=== PATIENT | female | born 1985 | race Caucasian/White ===

== ENCOUNTER 2016-12-11 12:15 | Emergency (ER) | payer OTHER ==
[~2016-12-11] VITALS: Ht 180.3 cm; Wt 76.1 kg
[~2016-12-11 12:15] MED LIST: ADVAIR 250/501 DISK IH; ATARAX,VISTARIL25 MG PO; AZITHROMYCIN250 MG PO; BENADRYL ALLERG25 MG PO; BENADRYL50 MG PO; BENZONATATE200 MG PO; BUSPAR10 MG PO; BUSPAR5 MG PO; CLINDAMYCIN HC300 MG PO; CYCLOBENZAPRINE 10 M; CYCLOBENZAPRINE10 MG PO; DIAZEPAM5 MG PO; EFFEXOR75 MG PO; FLUOXETINE HCL10 MG PO; Flexeril PO; HYDROXYZINE HCL10 MG PO; HYDROXYZINE HCL25 MG PO; MIRENA52 MG IY; NATALCARE RX1 TABLET PO; NORCO 5/3251 TABLET PO; OXYCODONE HCL10 MG PO; PERCOCET 5/31 TABLET PO; PREDNISONE20 MG PO; PROVENTIL,2.5 MG/3 M IH; PROZAC20 MG PO; Percocet 5/325,Endoc PO; Proventil,Ventolin H IH; SKYLA1 EACH IY; SYMBICORT60 INHALAT IH; Symbicort 80-4.5 mcg IH; TRAMADOL HCL50 MG PO; TRAZODONE HCL50 MG PO; VALIUM5 MG PO; ZOFRAN ODT4 MG PO; ZYVOX600 MG PO
[2016-12-11 13:06] LABS: HEMATOCRIT 35.1 % (36.0-46.0); MCH 29.8 PG (29.0-34.0); MCHC 34.5 G/DL (30.0-36.0); MCV 86.5 FL (83-99); MEAN PLAT.VOLUME 10.3 uM^3 (9.5-12.4); PLATELET COUNT 167 K/uL (156-360); RBC DIS.WIDTH-CV 12.8 % (11.8-14.6); RBC DIS.WIDTH-SD 39.8 % (39-53); RED BLOOD COUNT 4.06 M/uL (3.80-5.20); WHITE BLOOD COUNT 9.2 K/uL (4.1-10.2)
[2016-12-11 13:17] LABS: CHLORIDE 108 mEq/L (99-109); POTASSIUM 3.6 mEq/L (3.7-5.4); SODIUM 138 mEq/L (136-147)
[2016-12-11 13:18] LABS: GLUCOSE 116 mg/dL (70-99)
[2016-12-11 13:20] LABS: ANION GAP 11 MEQ/L (2-14)
[2016-12-11 13:22] LABS: GFR ESTIMATE (CALCULATED) > 59 mL/min/
[2016-12-11 13:23] LABS: UREA NITROGEN (BUN) 10 mg/dL (9-23)
[2016-12-11] MEDS ORDERED: PREDNISONE20 MG PO (14:42)
[2016-12-11] MEDS ORDERED: VENTOLIN HFA18 GM IH (14:42)
[2016-12-11 15:01] VITALS: BP 108/61
== END 2016-12-11 15:07 | disposition left against medical advice (07) ==
LOC: EME 12:15
PROVIDERS: Emergency Medicine
DX: O99.513 Diseases of the respiratory system complicating pregnancy, third trimester (principal); J45.909 Unspecified asthma, uncomplicated; O26.893 Other specified pregnancy related conditions, third trimester; Z3A.32 32 weeks gestation of pregnancy; K21.9 Gastro-esophageal reflux disease without esophagitis; Z87.442 Personal history of urinary calculi; Z87.891 Personal history of nicotine dependence; Z79.82 Long term (current) use of aspirin
CPT/HCPCS: 80048; 85027; 93005; 94640; 99281; 99285; J7030

== ENCOUNTER 2016-12-28 11:01 | Outpatient (CLI) | payer OTHER ==
[~2016-12-28] VITALS: Ht 165.1 cm; Wt 78.6 kg
[~2016-12-28 11:01] MED LIST changes: +VENTOLIN HFA18 GM IH
[2016-12-28 11:23] VITALS: BP 110/68
[2016-12-28] MEDS ORDERED: PULMICORT FLE180 MCG IH (11:32)
[2016-12-28] MEDS ORDERED: ASPIR 8181 M1 PO (11:35)
[2016-12-28] MEDS ORDERED: PRENA1 CHEW TA1.4 MG PO (11:35)
[2016-12-28] MEDS ORDERED: NYSTATIN15 GM TP (11:36)
[2016-12-28 13:03] LABS: ADD MIUA? YES; BILIRUBIN NEGATIVE; BLOOD LARGE; COLOR YELLOW ((YELLOW)); GLUCOSE (STRIP) NEGATIVE; KETONES NEGATIVE; LEUKOCYTES NEGATIVE; NITRITE NEGATIVE; PROTEIN (STRIP) NEGATIVE; SPECIFIC GRAVITY 1.005 (1.000-1.030); UROBILINOGEN 0.2 MG/DL (0.2-1.0)
[2016-12-28 13:14] LABS: BACTERIA 2+ /HPF; EPITHELIAL CELLS RARE /HPF; MUCUS TRACE /LPF; WHITE BLOOD CELLS 0-5 /HPF (0-5)
== END 2016-12-28 13:41 | disposition home or self-care (01) ==
LOC: LDRP-OP 11:01 → 2WEST 11:02
PROVIDERS: Advanced Practice Midwife
DX: O26.893 Other specified pregnancy related conditions, third trimester (principal); R31.9 Hematuria, unspecified; Z87.442 Personal history of urinary calculi; Z3A.34 34 weeks gestation of pregnancy
CPT/HCPCS: 59025; 81003; 87081; G0378

== ENCOUNTER 2017-01-07 10:33 | Outpatient (CLI) | payer OTHER ==
[2017-01-07] VITALS (9 sets, daily range): BP systolic 103–119; BP diastolic 54–74
[~2017-01-07 10:33] MED LIST changes: +ASPIR 8181 M1 PO; +NYSTATIN15 GM TP; +PRENA1 CHEW TA1.4 MG PO; +PULMICORT FLE180 MCG IH
[2017-01-07 12:32] LABS: COLOR RED ((YELLOW))
[2017-01-07 12:33] LABS: BILIRUBIN NEGATIVE; BLOOD LARGE; GLUCOSE (STRIP) NEGATIVE; KETONES 40; PROTEIN (STRIP) TRACE
[2017-01-07 12:34] LABS: ADD MIUA? YES; LEUKOCYTES NEGATIVE; NITRITE NEGATIVE; UROBILINOGEN 0.2 MG/DL (0.2-1.0)
[2017-01-07 12:35] LABS: RED BLOOD CELLS TNTC /HPF (0-5); UCUL ADDED? YES
[2017-01-08] VITALS (20 sets, daily range): BP systolic 78–121; BP diastolic 40–63
[2017-01-08] MEDS ORDERED: ENDOCET 5-3251 EACH PO (19:31)
== END 2017-01-08 19:53 | disposition home or self-care (01) ==
LOC: LDRP-OP 10:33 → 2WEST 10:35 → LDRP-OP 03-08 13:45
PROVIDERS: Advanced Practice Midwife
DX: O26.893 Other specified pregnancy related conditions, third trimester (principal); N13.2 Hydronephrosis with renal and ureteral calculous obstruction; O99.343 Other mental disorders complicating pregnancy, third trimester; F43.10 Post-traumatic stress disorder, unspecified; O99.513 Diseases of the respiratory system complicating pregnancy, third trimester; J45.909 Unspecified asthma, uncomplicated; Z3A.36 36 weeks gestation of pregnancy; Z87.442 Personal history of urinary calculi; Z88.0 Allergy status to penicillin; Z88.6 Allergy status to analgesic agent; Z88.8 Allergy status to other drugs, medicaments and biological substances; Z91.09 Other allergy status, other than to drugs and biological substances; Z98.1 Arthrodesis status
CPT/HCPCS: 59025; 76770; 81003; 87086; G0378; J1170; J2270; J2405; J7120